=== PATIENT | female | born 1990 | race Caucasian/White ===

== ENCOUNTER 2019-07-30 19:13 | Emergency (ER) | payer OTHER ==
[~2019-07-30] VITALS: Ht 160 cm; Wt 63.5 kg
[2019-07-30 19:15] VITALS: BP 103/64
[2019-07-30] MEDS ORDERED: ACETAMINOPHEN EXTRA STRENGTH 500 MG TAB PO ONE (21:30)
== END 2019-07-30 21:56 | disposition home or self-care (01) ==
LOC: MED 19:13
DX: F07.81 Postconcussional syndrome (principal); Z88.0 Allergy status to penicillin
CPT/HCPCS: 99282